=== PATIENT | male | born 1980 | race Caucasian/White ===

== ENCOUNTER 2018-09-16 08:10 | Emergency (ER) | payer MEDICAID ==
[~2018-09-16] VITALS: Ht 182.9 cm; Wt 130.0 kg
[2018-09-16 09:42] LABS: CHLORIDE 102 mEq/L (98-107)
[2018-09-16 09:47] LABS: BASOPHILS % 0.8 % (0.0-2.0); EOSINOPHILS % 1.1 % (0.0-5.0); HEMATOCRIT. 45.8 % (42.0-52.0); HEMOGLOBIN. 15.8 g/dL (14.0-18.0); LYMPHOCYTES % 56.7 % (20.0-50.0); MEAN CORPUSCULAR HEMOGLOBIN 27.9 pg (28.0-32.0); MEAN PLATELET VOLUME 9.1 fl (7.4-10.4); MONOCYTES % 14.4 % (2.0-8.0); PLATELET 187 x1000/uL (130-400); RED BLOOD CELL COUNT 5.65 mill/uL (4.7-6.1); RED CELL DISTRIBUTION WIDTH 16.1 % (11.6-14.6)
[2018-09-16 10:30] VITALS: BP 155/74
== END 2018-09-16 11:08 | disposition home or self-care (01) ==
LOC: ER 08:10
DX: J40 Bronchitis, not specified as acute or chronic (principal); F12.90 Cannabis use, unspecified, uncomplicated
CPT/HCPCS: 36415; 71045; 80048; 87804; 99284; 99406

== ENCOUNTER 2019-04-18 11:00 | Emergency (ER) | payer SELFPAY ==
[~2019-04-18] VITALS: Ht 185.4 cm; Wt 121.0 kg
[2019-04-18 14:30] VITALS: BP 136/78
[2019-04-18] MEDS ORDERED: ONDANSETRON 4MG ODT PO ONE (14:30)
== END 2019-04-18 15:10 | disposition left against medical advice (07) ==
LOC: ER 12:45
DX: K52.9 Noninfective gastroenteritis and colitis, unspecified (principal); E86.0 Dehydration; F41.9 Anxiety disorder, unspecified; F12.10 Cannabis abuse, uncomplicated
CPT/HCPCS: 71045; 99284

== ENCOUNTER 2020-04-07 15:27 | Emergency (ER) | payer MEDICAID ==
[~2020-04-07] VITALS: Ht 185.4 cm; Wt 120.0 kg
[2020-04-07 15:33] VITALS: BP 130/79
== END 2020-04-07 18:35 | disposition left against medical advice (07) ==
LOC: ER 15:27
DX: R07.89 Other chest pain (principal); Z53.21 Procedure and treatment not carried out due to patient leaving prior to being seen by health care provider

== ENCOUNTER 2020-04-07 19:51 | Emergency (ER) | payer MEDICAID ==
[~2020-04-07] VITALS: Ht 185.4 cm; Wt 120.0 kg
[2020-04-07 19:55] VITALS: BP 137/85
== END 2020-04-07 22:49 | disposition left against medical advice (07) ==
LOC: ER 19:51
DX: R07.89 Other chest pain (principal); F12.10 Cannabis abuse, uncomplicated; Z53.21 Procedure and treatment not carried out due to patient leaving prior to being seen by health care provider

== ENCOUNTER 2020-04-14 16:33 | Emergency (ER) | payer MEDICAID ==
[~2020-04-14] VITALS: Ht 185.4 cm; Wt 120.0 kg
[2020-04-14] MEDS ORDERED: IBUPROFEN 600MG TABLET PO STA (17:50)
[2020-04-14 18:06] LABS: EOSINOPHILS % 3.2 % (0.0-5.0); HEMATOCRIT. 39.6 % (42.0-52.0); HEMOGLOBIN. 13.4 g/dL (14.0-18.0); LYMPHOCYTES % 38.7 % (20.0-50.0); MEAN CORPUSCULAR HEMOGLOBIN 27.9 pg (28.0-32.0); MEAN CORPUSCULAR VOLUME 82.2 fL (80.0-94.0); MEAN PLATELET VOLUME 8.3 fl (7.4-10.4); MONOCYTES % 7.3 % (2.0-8.0); NEUTROPHILS % 49.8 % (40.0-76.0); PLATELET 270 x1000/uL (130-400); RED BLOOD CELL COUNT 4.82 mill/uL (4.7-6.1); RED CELL DISTRIBUTION WIDTH 16.3 % (11.6-14.6)
[2020-04-14 18:11] LABS: CHLORIDE 103 mEq/L (98-107)
[2020-04-14 18:18] VITALS: BP 128/70
== END 2020-04-14 18:46 | disposition home or self-care (01) ==
LOC: ER 16:33
DX: R07.89 Other chest pain (principal); F12.10 Cannabis abuse, uncomplicated; Z98.890 Other specified postprocedural states
CPT/HCPCS: 36415; 71045; 80053; 85025; 93005; 99285

== ENCOUNTER 2020-04-28 08:42 | Emergency (ER) | payer MEDICAID ==
[~2020-04-28] VITALS: Ht 185.4 cm; Wt 122.7 kg
[2020-04-28 10:42] LABS: EOSINOPHILS % 3.5 % (0.0-5.0); HEMOGLOBIN. 13.9 g/dL (14.0-18.0); LYMPHOCYTES % 45.3 % (20.0-50.0); MEAN CORPUSCULAR VOLUME 82.7 fL (80.0-94.0); MEAN PLATELET VOLUME 8.9 fl (7.4-10.4); MONOCYTES % 6.1 % (2.0-8.0); NEUTROPHILS % 44.1 % (40.0-76.0); PLATELET 221 x1000/uL (130-400); RED BLOOD CELL COUNT 4.96 mill/uL (4.7-6.1); RED CELL DISTRIBUTION WIDTH 16.5 % (11.6-14.6)
[2020-04-28 10:47] LABS: CHLORIDE 107 mEq/L (98-107)
[2020-04-28 10:56] LABS: COLOR URINE YELLOW (YELLOW); KETONES URINE NEGATIVE (NEGATIVE); LEUKOCYTE ESTERASE URINE NEGATIVE (NEGATIVE); NITRITE URINE NEGATIVE (NEGATIVE); OCCULT BLOOD URINE NEGATIVE (NEGATIVE); PROTEIN URINE NEGATIVE (NEGATIVE); SPECIFIC GRAVITY URINE 1.016 (1.005-1.030); UROBILINOGEN URINE 0.2 E.U./dL (0.2-1.0)
[2020-04-28 10:58] LABS: CLARITY URINE CLEAR (CLEAR)
[2020-04-28 13:06] VITALS: BP 135/80
== END 2020-04-28 13:07 | disposition home or self-care (01) ==
LOC: ER 08:42
DX: R10.9 Unspecified abdominal pain (principal); M54.9 Dorsalgia, unspecified; Z98.890 Other specified postprocedural states; F12.10 Cannabis abuse, uncomplicated
CPT/HCPCS: 36415; 71045; 74176; 80053; 81003; 85025; 93005; 99285

== ENCOUNTER 2021-02-05 08:08 | Emergency (ER) | payer MEDICAID ==
[~2021-02-05] VITALS: Ht 185.4 cm; Wt 120.0 kg
[2021-02-05] MEDS ORDERED: ACETAMINOPHEN 325MG TABLET PO STA (08:36)
[2021-02-05 09:05] LABS: CLARITY URINE CLEAR (CLEAR); COLOR URINE YELLOW (YELLOW); KETONES URINE NEGATIVE (NEGATIVE); LEUKOCYTE ESTERASE URINE TRACE (NEGATIVE); NITRITE URINE NEGATIVE (NEGATIVE); OCCULT BLOOD URINE NEGATIVE (NEGATIVE); PH URINE 5.5 (4.5-8.0); PROTEIN URINE NEGATIVE (NEGATIVE); SPECIFIC GRAVITY URINE 1.015 (1.005-1.030); UROBILINOGEN URINE 0.2 E.U./dL (0.2-1.0)
[2021-02-05] MEDS ORDERED: NAPR-677 MT (09:25)
[2021-02-05] MEDS ORDERED: CYCL10TA7 MT (09:25)
[2021-02-05 09:34] VITALS: BP 134/75
== END 2021-02-05 10:16 | disposition home or self-care (01) ==
LOC: ER 08:09
DX: M54.89 Other dorsalgia (principal); R03.0 Elevated blood-pressure reading, without diagnosis of hypertension; F12.90 Cannabis use, unspecified, uncomplicated
CPT/HCPCS: 74176; 81003; 99284

== ENCOUNTER 2022-07-29 12:26 | Emergency (ER) | payer MEDICAID, OTHER ==
[~2022-07-29] VITALS: Ht 182.9 cm; Wt 100.0 kg
[~2022-07-29 12:26] MED LIST: CYCL10TA21 MT; NAPR-677 MT
[2022-07-29] MEDS ORDERED: KETOROLAC 30MG/ML VIAL IV STA (16:30)
[2022-07-29 18:00] LABS: BASOPHILS % 1.1 % (0.0-2.0); EOSINOPHILS % 2.8 % (0.0-5.0); HEMATOCRIT. 42.6 % (42.0-52.0); HEMOGLOBIN. 14.2 g/dL (14.0-18.0); LYMPHOCYTES % 44.3 % (20.0-50.0); MEAN CORPUSCULAR HEMOGLOBIN 27.5 pg (28.0-32.0); MEAN CORPUSCULAR VOLUME 82.1 fL (80.0-94.0); MONOCYTES % 8.4 % (2.0-8.0); NEUTROPHILS % 43.4 % (40.0-76.0); PLATELET 262 x1000/uL (130-400); RED BLOOD CELL COUNT 5.18 mill/uL (4.7-6.1); RED CELL DISTRIBUTION WIDTH 17.2 % (11.6-14.6)
[2022-07-29 18:08] LABS: CHLORIDE 104 mEq/L (98-107)
[2022-07-29 20:49] VITALS: BP 104/78
== END 2022-07-29 20:51 | disposition home or self-care (01) ==
LOC: ER 12:26
DX: M54.59 Other low back pain (principal); M54.6 Pain in thoracic spine; M79.604 Pain in right leg; M79.605 Pain in left leg
CPT/HCPCS: 36415; 70450; 71260; 72125; 74177; 80053; 85025; 96374; 99285; J1885